=== PATIENT | female | born 1965 | race Caucasian/White ===

== ENCOUNTER 2025-07-01 10:27 | Outpatient (REF) | payer MEDICARE, MEDICAID, SELFPAY ==
--- OUTSIDE RECORDS SUMMARY | 2025-07-01 13:31 | XMS_ITS ---
Author Name [facility] Organization Unknown Care Team Organization Name Specialty Phone Email Start Date End [facility] 03/16/2025
--- OUTSIDE RECORDS SUMMARY | 2025-07-01 13:31 | XMS_ITS | Clinical Summary ---
Author Organization [facility] Address [address] [address] Phone Care Team Providers Care Compactor Driver Name Role Phone Ricadro Cole MD Primary Care Provider [phone]- [phone] Allergies Active Allergy Reactions Criticality Noted Date Comments Codeine Unknown Medium 07/16/2011 Medications methotrexate 2.5 MG Oral tabletIndications :rheumatoid arthritis Take 12.5 mg by mouth every 7 days. Indications: rheumatoid arthritis Active hydrOXYchloroQUIN E (PLAQUENIL) 200 mg tabletIndications :systemic lupus erythematosus Take 400 mg by mouth daily. Indications: systemic lupus erythematosus, an autoimmune disease Active Immunizations Immunization Administration Dates Next Due Influenza Quadrivalent w/ Preservative IM 2010(Deferred: Other) Pneumococcal polysaccharide PPSV23 08/24/2010(De ferred: Other) Social History Tobacco Use Types Packs/Day Years Used Date Smoking Tobacco: Former Education Answer Date Recorded Are you interested in more education? Not on enrique e 11/21/2022 Are you concerned about learning? Not on file 11/21/2022 No 11/21/2022 No 11/21/2022 Digital Access Answer Date Recorded No 12/23/2022 No 12/23/2022 No 12/23/2022 Reliable internet access at home? Not on file 12/23/2022 Device with a working camera? Not on file Comments Unknown Sex and Gender Information Value Date Recorded Sex Assigned at Not on file Legal Sex Female 7:23 PM EST Gender Identity Not on file Sexual Orientation Not on file Last Filed Vital Signs Vital Sign Reading Time Taken Comments Blood Pressure 124/82 04/23/2011 10:49 AM EDT Pulse 67 04/23/2011 10:49 AM EDT Temperature 36.1 C (97 F) 04/23/2011 10:49 AM EDT Respiratory Rate 20 07/16/2010 12:35 PM EST Oxygen Saturation - - Inhaled Oxygen Concentration - - Weight 50.9 kg (112 lb 3.2 oz) 04/23/2011 10:49 AM EDT Height 159 cm (5' 2.6 ) 07/16/2010 12:35 PM EST Body Mass Index 20.13 07/16/2010 12:35 PM EST Plan of Treatment Health Maintenance Due Date Last Done Comments Adult Td,Tdap Booster 1965 LIPID PANEL 1965 DEPRESSION SCREENING 1977 SMOKING Hx and SMOKELESS TOB ACCO SCREENING 1978 HIV ONE-TIME SCREENING (18-6 5 YEARS) 1983 PNEUMOCOCCAL VACCINES (50+ y ears) (1 of 2 - PCV) 01/21/1984 ZOSTER VACCINES (1 of 2) 01/21/1984 PAP SMEAR 1986 MAMMOGRAM 2005 COLOGUARD 2010 COLONOSCOPY 2010 COLORECTAL CANCER SCREENING 2010 FIT TEST 2010 FOBT 2010 SIGMOIDOSCOPY 2010 VIRTUAL COLONOSCOPY 2010 RSV VACCINE (1 - Risk 50-74 years 1-dose series) 2015 COVID-19 VACCINE (2 - Pfizer risk series) 10/30/2020 10/09/2020 INFLUENZA VACCINE (#1) 2025 HEPATITIS C SCREENING Completed 10/10/2009 HEPATITIS A VACCINES Aged Out No long er eligible based on patient's age to complete this topic HIB VACCINES Aged Out No longer eligi ble based on patient's age to complete this topic MENINGOCOCCAL VACCINES (ACWY) Aged Out No longer eligible based on patient's age to complete this topic MENINGOCOCCAL VACCINES (B) Aged Out N o longer eligible based on patient's age to complete this topic Medical Devices Not on file Procedures Procedure Name Priority Date/Time Associated Diagnosis Comments HISTORICAL LAB Routine 10/10/2009 12:31 PM EDT from Last 3 Months or Most Recently Relevant to Health Maintenance Results * Historical Lab (10/10/2009 12:31 PM EDT) HAV TOTAL ANTIBODIES ANTIBODY NEGATIVE NON-REACTIVE [facility] HAV IgM NEGATIVE NON-REACTIVE [facility] HBsAg NEGATIVE NEGATIVE [facility] HBsAb NEGATIVE NEGATIVE [facility] HBcAb NEGATIVE NEGATIVE [facility] HBc IgM NEGATIVE NEGATIVE [facility] HCV NEGATIVE NEGATIVE [facility] 10/10/2009 12:3 1 PM EDT Comment:BLOOD us Vivian Lira MD, MPH LAB BLOOD ORDERABLES F inal Result [address] [id number] from Last 3 Months or Most Recently Relevant to Health Maintenance Insurance MEDICARE PART A & B [facility] MEDICARE PART A & B MEDICARE PART A & [place] [address] [place] [address] MEDICARE PART A & [facility] [place] [address] [place] [address] MEDICARE PART A & B [facility] MEDICARE PART A & B [facility] MEDICARE PART A & B MEDICARE PART A & B [facility] Care Teams Compactor Driver Relationship Specialty Start Date End Date Ricardo Cole MD [address] [place] [id number] PCP - General Internal Medicine 05/12/15 Additional Source Comments The information contained in this document represents components of the legal health record. It is not the complete legal health record.[facility]
--- OUTSIDE RECORDS SUMMARY | 2025-07-01 13:31 | XMS_ITS | Encounter Summary ---
Author Organization [facility] Address [address] [place] [address] Care Team Providers Care Brim Edge Trimmer Name Role Phone Azalia Chacon Primary Care Provider + Encounter Details Date Type Department Care Team ([facility] st Contact Info) Description 06/20/2025 Telephone Internal Medicine - [place] [address] [place] [address] Azalia Chacon PA [address] [place] [address] Social History Tobacco Use Types Packs/Day Years Used Date Smoking Tobacco: Former Smokeless Tobacco: Never Alcohol Use Standard Drinks/Week Comments Yes 0 (1 standard drink = 0.6 oz pur e alcohol) Housing Instability Answer Date Recorde d Are you worried that in the next 2 months you may not have stable housing? No 04/07/2025 Food Access & Nutrition Answer Date Rec orded Do you have access to a vari ety of food including fruits and vegetables? Yes 04/07/2025 Access to Healthcare Answer Date Record ed Within the last 3 months, ho w many times did you visit the emergency department for your medical care? 0 04/07/2025 Health Literacy Answer Date Recorded How often do you need to hav e someone help you when you read instructions, pamphlets, or other written material from your doctor or pharmacy? Never 04/07/2025 Caregiver: How often do you need to have someone help you when you read instructions, pamphlets, or other written material from your doctor or pharmacy? Not on file 04/07/2025 Financial Risk Answer Date Recorded How hard is it for you to pa y for the very basics like food, housing, medical care, and air conditioning / heating? Not asked 04/07/2025 Transportation Answer Date Recorded Has the lack of transportati on kept you from meetings, work, or from getting things needed for daily living? No Has the lack of transportati on kept you from medical appointments or from getting medications? No 04/07/2025 Social Isolation Answer Date Recorded How often do you feel lonely or isolated from th ose around you? Never 04/07/2025 Food Risk Answer Date Recorded Within the past 12 months we worried whether our food would run out before we got money to buy more. Never true 04/07/2025 Within the past 12 months th e food we bought just didn't last and we didn't have money to get more. Never true 04/07/2025 Dependent Care Answer Date Recorded Do you need help finding or paying for care for your loved ones. For example, child neurologist or elderly care for an older adult? No 04/07/2025 Education Answer Date Recorded Do you think completing more education or training, like finishing a GED, going to college, or learning a trade, would be helpful for you? No 04/07/2025 Employment and Income Answer Date Recor ded During the last four weeks, have you been actively looking for work? No 04/07/2025 Living Situation Answer Date Recorded What is your living situation? Unrecognized valu e 04/07/2025 Comments No Sex and Gender Information Value Date Recorded Sex Assigned at Female 10/04/2024 10:36 AM EDT Legal Sex Female 9:37 AM EST Gender Identity Female 10/04/2024 10:36 AM EDT Sexual Orientation Straight 10/04/2024 10 :53 AM EDT documented as of this encounter Plan of Treatment Upcoming Encounters Date Type Department Care Team (Late st Contact Info) Description 07/08/2025 11:15 AM EST Office Visit Internal Medicine - [place] [address] [place] [address] Azalia Chacon, LES [address] [place] [address] documented as of this encounter Visit Diagnoses Not on filedocumented in this encounter Additional Health Concerns Assessment Noted Time PHQ-9 Depression Total Score: 1 04/07/20 25 2:13 PM EDT documented as of this encounter Care Teams Brim Edge Trimmer Relationship Specialty Start Date End Date Azalia Chacon PA [address] [address] PCP - General Internal Medicine 06/14/20 documented as of this encounter
--- OUTSIDE RECORDS SUMMARY | 2025-07-01 13:31 | XMS_ITS | Clinical Summary ---
Author Organization 175 [facility] Address [address] [place] [address] Phone Care Team Providers Care Chain Puller Name Role Phone Azalia Chacon Primary Care Provider + Allergies No known active allergies Medications hydrOXYzine HCL (ATARAX) 25 mg tablet TAKE 1 TABLET BY MOUTH DAILY NEEDED FOR ITCHING 4 Active ketotifen fumarate (ZADITOR) 0.035 % ophthalmic solution INSTILL 1 DROP IN BOTH EYES TWICE DAILY Strength: 0.025 % 3 Active fluocinonide (LIDEX) 0.05 % topical solution Apply to affected area bid prn 2 Active hydroxychloroq uine (PLAQUENIL) 200 mg tablet Take 2 tablets (400 mg total) by mouth 1 (one) time each day. 0 Active predniSONE (DELTASONE) 10 mg tabletIndicati ons:Acute left-sided low back pain with left-sided sciatica Take 3 tabs daily x 3 days, 2 tabs daily x 3 days, 1 tab daily x 3 days, 18 tablet 4 Active polyethylene glycol (Golytely) 236-22.74-6.74 -5.86 gram solution Take 4L by mouth once for one dose. May substitue any PEG. Starting at 6PM the night before your procedure drink 1 8oz glasses at your own pace until you complete half of the gallon. Finish 2nd half of the gallon 5 hours before your procedure. 4000 mL 5 Active bisacodyL (DULCOLAX) 5 mg EC tablet Take 2 tablets by mouth right before beginning bowel prep. See instructions provided by the office 2 tablet 5 Active traZODone (DESYREL) 50 mg tablet Take 3 tablets (150 mg total) by mouth at bedtime. 90 tablet 5 5 Active cyclobenzaprin e (FLEXERIL) 10 mg tablet Take 1 tablet (10 mg total) by mouth 3 (three) times a day if needed for muscle spasms. for muscle spasms 90 tablet 3 5 Active gabapentin (NEURONTIN) 600 mg tablet Take 1 tablet (600 mg total) by mouth 3 (three) times a day. 90 tablet 5 5 Active sertraline (ZOLOFT) 100 mg tablet Take 1 tablet (100 mg total) by mouth 1 (one) time each day. 90 tablet 1 5 Active ondansetron (ZOFRAN) 4 mg tablet Take 1 tablet (4 mg total) by mouth every 8 (eight) hours if needed for nausea or vomiting. 21 tablet 1 5 Active ibuprofen (ADVIL,MOTRIN) 600 mg tablet Take 1 tablet (600 mg total) by mouth every 8 (eight) hours if needed for mild pain. for pain 180 tablet 1 5 Active cetirizine (ZyrTEC) 10 mg tablet Take 1 tablet (10 mg total) by mouth 1 (one) time each day. 90 tablet 3 5 Active traMADoL (ULTRAM) 50 mg tabletIndicati ons:Acute left-sided low back pain with left-sided sciatica Take 1 tablet (50 mg total) by mouth 3 (three) times a day if needed for severe pain. Max Daily Amount: 150 mg 84 tablet 5 Active fluticasone propionate (FLONASE) 50 mcg/actuation nasal spray Administer 2 sprays into each nostril 1 (one) time each day. Shake liquid before each use 48 g 1 5 Active omeprazole (PriLOSEC) [address] capsule Take 1 capsule (20 mg total) by mouth 1 (one) time each day. 90 capsule 1 5 Active omeprazole (PriLOSEC) [address] capsule Take 1 capsule (20 mg total) by mouth 1 (one) time each day. 90 capsule 1 5 025 Discontin ued(Reord er) fluticasone propionate (FLONASE) 50 mcg/actuation nasal spray SHAKE LIQUID AND USE 2 SPRAYS IN EACH NOSTRIL 1 TIME EACH DAY 48 g 1 5 025 Discontin ued(Reord er) traMADoL (ULTRAM) 50 mg tabletIndicati ons:Acute left-sided low back pain with left-sided sciatica Take 1 tablet (50 mg total) by mouth 3 (three) times a day if needed for severe pain. Max Daily Amount: 150 mg 84 tablet 5 025 Discontin ued(Reord er) Active Problems Problem Noted Date Diagnosed Date Allergic rhinitis 03/02/2019 Low back pain 03/02/2019 Peripheral neuropathy 2018 Spinal stenosis 2018 Rheumatoid arthritis ([facility] V24, [facility] V28) 12/10/2017 Substance use disorder 08/26/2017 Overview (06/14/2024): Opioids Anxiety 01/14/2017 Insomnia 01/14/2017 DJD (degenerative joint disease), lumbar 016 Sacroiliitis ([facility] V24) 01/02/2012 Systemic lupus erythematosus ([facility] V24, [facility] V28) 12/13/2011 Encounters Date Type Department Care Team Description 06/20/2025 Telephone Internal Medicine [address] [phone] Azalia Chacon PA 04/07/2025 2:30 PM EDT Telemedicine Internal Medicine [address] [phone] Anselmo Craven MD Cough, unspecified type (Primary Dx); URI, acute 04/06/2025 Telephone Internal Medicine [address] [phone] Azalia Chacon PA from Last 3 Months Immunizations Immunization Administration Dates Next Due Moderna SARS-CoV-2 COVID-19, mRNA, LNP-S, preservative free 06/16/2021 Tdap Tetanus diptheria acell ular pertussis (Boostrix; Adacel) 7yo and older 08/25/2013 Surgical History Surgery Date Site/Laterality Comments BREAST RECONSTRUCTION PROCEDURE: BREAST RECONSTRUCTION; COMMENT: breast ca OTHER SURGICAL HISTORY 2010 PROCEDURE: HISTORICAL COMPLETE BILATERAL MASTECTOMY Medical History Medical History Date Comments Malignant neoplasm of breast (female), unspecified site 2010 DX:Malignant neoplasm of br east (female), unspecified site; COMMENT: jyoti mastectomy Systemic lupus erythematosus ([facility] V24, [facility] V28) 12/13/2011 DX:Systemic lupus erythemato faizan ([facility]) History of breast cancer 12/31/2011 DX:Hist ory of breast cancer; COMMENT: [facility] Sacroiliitis ([facility] V24) 01/02/2012 DX:Sa croiliitis ([facility]) DJD (degenerative joint dise ase), lumbar 07/09/2016 DX:DJD (degenerative joint d isease), lumbar Insomnia 01/14/2017 DX:Insomnia Peripheral neuropathy 2018 DX:Periphe ral neuropathy Rheumatoid arthritis ([facility] V24, [facility] V28) 12/10/2017 DX:Rheumatoid arthritis ([facility] ) Seasonal allergies 05/26/2017 DX:Seasonal a llergies Spinal stenosis 2018 DX:Spinal stenos is Substance use disorder 08/26/2017 DX:Substa nce use disorder; COMMENT: Opioids Anxiety 01/14/2017 DX:Anxiety Family History Medical History Relation Name Comments Hypertension Father COPD Mother Other: none Other Relation Name Status Comments Brother 1 Alive Brother 2 Alive Father (Age 76) covid pneu monia Mother (Age 70) Other Sister Alive Social History Tobacco Use Types Packs/Day Years Used Date Smoking Tobacco: Former Smokeless Tobacco: Never Tobacco Cessation:Counseling Given: Not Answered Alcohol Use Standard Drinks/Week Comments Yes 0 [...] for your loved ones. For example, child psychologist or elderly care for an older adult? [...] Orientation Straight 10/04/2024 10 :53 AM EDT Obstetrics History Last Filed Vital Signs Vital Sign Reading Time Taken Comments Blood Pressure 134/80 03/11/2025 10:31 AM EDT Pulse 87 03/11/2025 10:31 AM EDT Temperature 36.6 C (97.8 F) 03/11/2025 10:31 AM EDT Respiratory Rate 16 10/05/2024 1:22 PM EDT Oxygen Saturation 98% 03/11/2025 10:31 AM EDT Inhaled Oxygen Concentration - - Weight 58.5 kg (129 lb) 03/11/2025 10:31 AM EDT Height 157.5 cm (5' 2 ) 03/11/2025 10:31 AM EDT Body Mass Index 23.59 03/11/2025 10:31 AM EDT Plan of Treatment Upcoming Encounters Date Type Department Care Team (Late st Contact Info) Description 07/08/2025 11:15 AM EST Office Visit Internal Medicine - [place] [address] [facility] [address] [place] [id number] Azalia Chacon PA [address] [place] [address] Health Maintenance Due Date Last Done Comments Zoster Vaccines (1 of 2) 01/21/1984 Pneumococcal Vaccine: 50+ Years (1 of 1 - PCV) 2015 Cervical Cancer Screening: P ap Smear 10/20/2021 10/20/2018 HIV Screening 07/01/2022 Hepatitis C Screening 07/01/2022 COVID-19 Vaccine (4 - 2024-2 6 season) 2025 06/16/2021, 10/30/2020, 10/09/2020 Influenza Vaccine (#1) 2025 03/25/2020 Medicare Annual Wellness Visit 04/30/2025 04/30/2024 Social Influencers of Health Screening 04/07/2026 04/07/2025 Cholesterol Screening (Lipid Panel) 12/27/2026 12/27/2021 DTaP,Tdap,and Td Vaccines (3 - Td or Tdap) 10/10/2033 10/11/2023, 08/25/2013 Colorectal Cancer Screening: Colonoscopy 10/05/2034 10/05/2024 RSV Immunization Adult Patients (1 - 1-dose 75+ series) 01/21/2040 Depression Screening Completed 04/07/2025, 04/30/2024 HIB Vaccines Aged Out No longer eligi ble based on patient's age to complete this topic HPV Vaccines Aged Out No longer eligi ble based on patient's age to complete this topic Hepatitis A Vaccines Aged Out No long er eligible based on patient's age to complete this topic Hepatitis B Vaccines Aged Out No long er eligible based on patient's age to complete this topic IPV Vaccines Aged Out No longer eligi ble based on patient's age to complete this topic MMR Vaccines Aged Out No longer eligi ble based on patient's age to complete this topic Meningococcal ACWY Vaccine Aged Out N o longer eligible based on patient's age to complete this topic Meningococcal B Vaccine Aged Out No l onger eligible based on patient's age to complete this topic RSV Immunization Patients Under 20 months Aged Out No longer eligible b ased on patient's age to complete this topic Varicella Vaccines Aged Out No longer eligible based on patient's age to complete this topic Procedures Procedure Name Priority Date/Time Associated Diagnosis Comments COLONOSCOPY Routine 10/05/2024 1:01 PM EDT Colon cancer screening DEPRESSION SCREENING Routine 04/30/2024 LIPID PANEL Routine 12/27/2021 PAP SMEAR Routine 10/20/2018 from Last 3 Months or Most Recently Relevant to Health Maintenance Results * COLONOSCOPY Anesthesia - [facility]; [facility] ENDOSCOPY (10/05/2024 1:01 PM EDT) Anatomical Region Laterality Modality Endoscopy 10/05/2024 12:4 6 PM EDT Impressions 10/05/2024 1:02 PM EDT - Diverticulosis in the sigmoid colon, in the descending colon and in the ascending colon. - No specimens collected. Recommendation: - Discharge patient to home. - Repeat colonoscopy in 10 years for screening purposes. Narrative 10/05/2024 1:02 PM EDT [facility] GI Patient Name: Gricelda Conway Procedure Date: 10/05/2024 12:46 PM Date of : 1965 Age: 59 Gender: Female Note Status: Finalized Attending MD: Maranda Brooks MD, Procedure Date No Time: 10/05/2024 Procedure: Colonoscopy Indications: Screening for colorectal malignant neoplasm Providers: Maranda Brooks MD Referring MD: Maranda Brooks MD Medicines: Monitored Anesthesia Care Complications: No immediate complications. Estimated blood loss: None. Estimated Blood Loss: Estimated blood loss: none. Procedure: Pre-Anesthesia Assessment: - Prior to the procedure, a History and Physical was performed, and patient medications and allergies were reviewed. The patient is competent. The risks and benefits of the procedure and the sedation options and risks were discussed with the patient. All questions were answered and informed consent was obtained. Patient identification and proposed procedure were verified by the physician, the nurse, the diversity specialist and the performing arts technicians in the pre-procedure area in the endoscopy suite. Mental Status Examination: alert and oriented. Airway Examination: normal oropharyngeal airway and neck mobility. Respiratory Examination: clear to auscultation. CV Examination: normal. Prophylactic Antibiotics: The patient does not require prophylactic antibiotics. Prior Anticoagulants: The patient has taken no anticoagulant or antiplatelet agents. ASA Grade Assessment: III - A patient with severe systemic disease. After reviewing the risks and benefits, the patient was deemed in satisfactory condition to undergo the procedure. The anesthesia plan was to use monitored anesthesia care (MAC). Immediately prior to administration of medications, the patient was re-assessed for adequacy to receive sedatives. The heart rate, respiratory rate, oxygen saturations, blood pressure, adequacy of pulmonary ventilation, and response to care were monitored throughout the procedure. The physical status of the patient was re-assessed after the procedure. After I obtained informed consent, the scope was passed under direct vision. Throughout the procedure, the patient's blood pressure, pulse, and oxygen saturations were monitored continuously. The Colonoscope was introduced through the anus and advanced to the cecum, identified by appendiceal orifice and ileocecal valve. The colonoscopy was performed without difficulty. The patient tolerated the procedure well. The quality of the bowel preparation was good. Findings: The perianal and digital rectal examinations were normal. Multiple small-mouthed diverticula were found in the sigmoid colon, descending colon and ascending colon. The retroflexed view of the distal rectum and anal verge was normal and showed no anal or rectal abnormalities. Procedure Code(s): --- Professional --- G0121, Colorectal cancer screening; colonoscopy on individual not meeting criteria for high risk Diagnosis Code(s): --- Professional --- Z12.11, Encounter for screening for malignant neoplasm of colon CPT copyright 2020 [employer]. All rights reserved. The codes documented in this report are preliminary and upon plumbing foreman review may be revised to meet current compliance requirements. Maranda Brooks MD 10/05/2024 1:02:28 PM This report has been signed electronically.Maranda Brooks MD Number of Addenda: 0 Note Initiated On: 10/05/2024 12:46 PM Scope Withdrawal Time: 0 hours 6 minutes 24 seconds Scope In: 12:50:37 PM Scope Out: 1:02:33 PM Endoscopy Department at [facility] - [address] [place] [id number] Procedure Note Maranda Brooks MD - 10/05/2024 [facility] GI Patient Name: Gricelda Conway Procedure Date: 10/05/2024 12:46 PM Date of : 1965 Age: 59 Gender: Female Note Status: Finalized Attending MD: Maranda Brooks MD, Procedure Date No Time: 10/05/2024 Procedure: Colonoscopy Indications: Screening for colorectal malignant neoplasm Providers: Maranda Brooks MD Referring MD: Maranda Brooks MD Medicines: Monitored Anesthesia Care Complications: No immediate complications. Estimated blood loss:None. Estimated Blood Loss: Estimated blood loss: none. Procedure: Pre-Anesthesia Assessment: - Prior to the procedure, a History and Physicalwas performed, and patient medications and allergieswere reviewed. The patient is competent. The risks and benefits of the procedure and the sedation optionsand risks were discussed with the patient. Allquestions were answered and informed consent was obtained. Patient identification and proposed procedure were verified by the physician, the nurse, theanesthetist and the performing arts technicians in the pre-procedure area in the endoscopy suite. Mental Status Examination: alertand oriented. Airway Examination: normal oropharyngeal airway and neck mobility. Respiratory Examination: clear to auscultation. CV Examination: normal. Prophylactic Antibiotics: The patient does notrequire prophylactic antibiotics. Prior Anticoagulants: The patient has taken no anticoagulant or antiplatelet agents. ASA Grade Assessment: III - A patient with severe systemic disease. After reviewing the risksand benefits, the patient was deemed in satisfactory condition to undergo the procedure. The anesthesia plan was to use monitored anesthesia care (MAC). Immediately prior to administration of medications, the patient was re-assessed for adequacy to receive sedatives. The heart rate, respiratory rate, oxygen saturations, blood pressure, adequacy of pulmonary ventilation, and response to care were monitored throughout the procedure. The physical status ofthe patient was re-assessed after the procedure. After I obtained informed consent, the scope was passed under direct vision. Throughout theprocedure, the patient's blood pressure, pulse, and oxygen saturations were monitored continuously. The Colonoscope was introduced through the anus and advanced to the cecum, identified by appendiceal orifice and ileocecal valve. The colonoscopy was performed without difficulty. The patient tolerated the procedure well. The quality of the bowel preparation was good. Findings: The perianal and digital rectal examinations were normal. Multiple small-mouthed diverticula were found inthe sigmoid colon, descending colon and ascendingcolon. The retroflexed view of the distal rectum and anal verge was normal and showed no anal or rectal abnormalities. Procedure Code(s): --- Professional --- G0121, Colorectal cancer screening; colonoscopy on individual not meeting criteria for high risk Diagnosis Code(s): --- Professional --- Z12.11, Encounter for screening for malignantneoplasm of colon CPT copyright 2020 [employer]. All rights reserved. The codes documented in this report are preliminary and upon plumbing foreman reviewmay be revised to meet current compliance requirements. Maranda Brooks MD 10/05/2024 1:02:28 PM This report has been signed electronically.Maranda Brooks MD Number of Addenda: 0 Note Initiated On: 10/05/2024 12:46 PM Scope Withdrawal Time: 0 hours 6 minutes 24 seconds Scope In: 12:50:37 PM Scope Out: 1:02:33 PM Endoscopy Department at [facility] - [address] [place] [id number] IMPRESSION: - Diverticulosis in the sigmoid colon, in the descending colon and in the ascending colon. - No specimens collected. Recommendation: - Discharge patient to home. - Repeat colonoscopy in 10 years for screening purposes. Result [facility] Maranda Brooks MD GI~PROCEDURE ORDERABLES Fin al Result * Depression Screening (04/30/2024) Depression Screening abstracted Result [facility] Historical Provider HEALTH MAINTENANCE Final Result * (ABNORMAL) Lipid panel (12/27/2021) LDL/HDL Ratio 3 0 - 4 Triglycerides 70 0 - 150 mg/dL Cholesterol 192 0 - 200 mg/dL HDL 65 >=40 mg/dL LDL Cholesterol 113(A) 0 - 100 mg/dL Blood Venous blood specimen / Unknown Result [facility] BLOOD ORDERABLES Francoise l Result * Pap Smear (10/20/2018) Pap smear abstracted, negative [facility] Provider HEALTH MAINTENANCE Final Result from Last 3 Months or Most Recently Relevant to Health Maintenance Insurance MEDICARE [place]ICA[place] - [place] [employer] MEDICARE on file Care Teams Chain Puller Relationship Specialty Start Date End Date Azalia Chacon PA [address] [address] PCP - General Internal Medicine 06/14/20
== END 2025-07-01 10:28 | disposition home or self-care (01) ==
LOC: HO.HPHYSR 10:27
PROVIDERS: PCP Physician Assistant; Visit Provider Physical Medicine & Rehabilitation
DX: M53.3 Sacrococcygeal disorders, not elsewhere classified (principal); M46.1 Sacroiliitis, not elsewhere classified
CPT/HCPCS: 27096; J2003; J3301; Q9967

== ENCOUNTER 2025-07-01 10:27 | Outpatient (AMB) | payer MEDICARE, MEDICAID, SELFPAY ==
[2025-07-01 10:48] VITALS: PULSE 85; TEMP 36.6; BMI 23.2
--- NOTE | 2025-07-01 10:48 | A.PHYSOV ---
Vital Signs 07/01/25 10:48 Height 5 ft 2 in Weight 127 lb BMI 23.2 Pulse 85 Temp 97.9 F Intake Visit Reasons: Left Sacroiliac Joint Injection Allergies No Known Allergies Allergy (Verified 07/01/25 10:47) PFSH Medical History (Updated 07/01/25 @ 11:01 by Aren Trejo DO) Sacroiliac inflammation Sacroiliac dysfunction Surgical History (Updated 06/29/25 @ 12:37 by Chasity Goetz MA) H/O mastectomy Social History (Updated 07/01/25 @ 10:52 by Chasity Goetz MA) Alcohol intake: current Alcohol intake frequency: does not drink Patient Tobacco Use Status: Former Tobacco user Use of substances other than those prescribed or required for medical reasons: No service: No Physical Exam Vital Signs: Last Vital Signs Temp 97.9 F 07/01/25 10:48 Pulse 85 07/01/25 10:48 BMI result Body Mass Index 23.2 Office Procedures AMB Sacroiliac Joint Injection AMB Sacroiliac Joint Injection Procedure Details: Procedure performed: Left sacroiliac joint injection Preop diagnosis: SI joint mediated pain, sacroiliitis Postop diagnosis: The same Anesthesia: Local After informed consent was obtained patient was brought into the procedure room and placed in prone position on the procedure table. Skin over lumbar sacral area was prepped and draped in the usual sterile manner. The inferior portion of the left sacroiliac joint was visualized utilizing fluoroscopy. 3.5 in 22 gauge spinal needle was introduced percutaneously and advanced into the joint. Needle placement was verified utilizing 0.5 cc of Omnipaque contrast solution. 2.5 cc of therapeutic solution containing 40 mg of triamcinolone and 2% lidocaine was injected after negative aspiration for blood. The C-arm was obliqued about 30? in the contralateral direction an area just medial the proximal portion of the sacroiliac joint was visualized. 3.5 in 22 gauge spinal needle was introduced percutaneously and advanced to enter the area. Once in place, needle placement was identified utilizing 1 cc of Omnipaque contrast solution. Total volume of 2.5 cc containing 40 mg of triamcinolone and 2% lidocaine was injected to block the lateral branches at the sacroiliac ligament. Radiation exposure was documented in the chart. Sacroiliac Joint Injections [id number] - use with FL Gd order: Left All charges added?: Procedure code (CPT) selection complete Office Meds Kenalog 40 mg/mL suspension for injection Performing Provider: Aren Trejo DO Performing Location: [facility] Administered by: Aren Trejo DO on 07/01/25 11:01 Dose Route Admin Location Dispensed Lot Number Expiration Date [facility] Processing Inspector 80 mg intra-articular 2 mL [id number] [employer] Total Dispensed Waste 2 mL 0 % lidocaine (PF) 20 mg/mL (2 %) injection solution Performing Provider: Aren Trejo DO [facility] Administered by: Aren Trejo DO on 07/01/25 11:01 Dose Route Admin Location Dispensed Lot Number Expiration Date [facility] Processing Inspector 120 mg intra-articular 10 mL [id number] [employer] Total Dispensed Waste 10 mL 40 % Omnipaque 300 300 mg iodine/mL intravenous solution Performing Provider: Aren Trejo DO Performing Location: [facility] Administered by: Aren Trejo DO on 07/01/25 11:01 Dose Route Admin Location Dispensed Lot Number Expiration Date [facility] Processing Inspector 3 mL intra-articular 10 mL [id number] [employer] Total Dispensed Waste 10 mL 70 % Assessment & Plan Assessment & Plan (1) Sacroiliac dysfunction: Code(s): M53.3 - Sacrococcygeal disorders, not elsewhere classified Category: Medical Plan: Procedure (2) Sacroiliac inflammation: Code(s): M46.1 - Sacroiliitis, not elsewhere classified Category: Medical Plan: Procedure Plan Procedure Orders: Orders FL Guided Sacroiliac Jt Inj LT Today M46.1 - Sacroiliitis, not elsewhere classified, M53.3 - Sacrococcygeal disorders, not elsewhere classified AMB Sacroiliac Joint Injection Today M46.1 - Sacroiliitis, not elsewhere classified, M53.3 - Sacrococcygeal disorders, not elsewhere classified Coding Level of Care Code Procedure Only Diagnoses Sacroiliac dysfunction M53.3 Sacroiliac inflammation M46.1 CPT Codes AMB Sacroiliac Joint Injection - Hip intraarticular Injection - : Left ([id number])
== END 2025-07-01 11:24 | disposition home or self-care (01) ==
LOC: HO.HPHYS 10:27
PROVIDERS: PCP Physician Assistant; Visit Provider Physical Medicine & Rehabilitation
DX: M53.3 Sacrococcygeal disorders, not elsewhere classified (principal); M46.1 Sacroiliitis, not elsewhere classified
CPT/HCPCS: 27096